=== PATIENT | female | born 1960 | race Caucasian/White ===

== ENCOUNTER 2022-03-14 06:45 | Emergency (ER) | payer BC ==
[~2022-03-14] VITALS: Ht 160 cm; Wt 48.2 kg
[2022-03-14 07:32] LABS: BASOPHILS % (AUTO) 0.8 % (0-1); EOSINOPHILS # (AUTO) 0.1 X10'3 (0-0.9); EOSINOPHILS % (AUTO) 1.1 % (0-6); HEMATOCRIT 37.3 % (35.0-45.0); HEMOGLOBIN 12.8 g/dl (12.0-16.0); LYMPHOCYTES % (AUTO) 49.1 % (21-51); MEAN CORPUSCULAR HEMOGLOBIN 32.8 PG (27.0-31.0); MEAN CORPUSCULAR HGB CONC 34.2 g/dL (33.0-36.5); MEAN CORPUSCULAR VOLUME 95.7 FL (78-98); MEAN PLATELET VOLUME 8.6 FL (7.4-10.4); MONOCYTES # (AUTO) 0.4 X10'3 (0-0.9); MONOCYTES % (AUTO) 6.7 % (2-12); NEUTROPHILS # (AUTO) 2.6 X10'3 (1.8-7.7); NEUTROPHILS % (AUTO) 42.3 % (42-75); PLATELET COUNT 169 X10'3 (140-440); RED BLOOD COUNT 3.89 X10'6 (4.20-5.60); RED CELL DISTRIBUTION WIDTH 12.8 % (11.5-14.5); WHITE BLOOD COUNT 6.1 X10'3 (4.5-11.0)
[2022-03-14 07:36] LABS: CLARITY,URINE CLEAR (Clear); COLOR,URINE YELLOW (Yellow); GLUCOSE, URINE NEGATIVE (Neg); KETONES,URINE NEGATIVE (Neg); LEUKOCYTE ESTERASE ,URINE NEGATIVE (Neg); NITRITES, URINE NEGATIVE (Neg); OCCULT BLOOD,URINE NEGATIVE (Neg); PROTEIN,URINE NEGATIVE (Neg); UROBILINOGEN,URINE 0.2 E.U/dL (0.2-1.0)
[2022-03-14 07:39] LABS: URINE HCG NEGATIVE (NEG)
[2022-03-14] MEDS ORDERED: normal saline 1000ML IV soln IVB ONE (07:40)
[2022-03-14] MEDS ORDERED: ondansetron/PF 4mg/2ml inj IV ONE (07:40)
[2022-03-14] MEDS ORDERED: pantoprazole 40 MG vial IV ONE (07:40)
[2022-03-14 07:44] LABS: UA COLLECTION TYPE CLN CATCH MIDSTREAM
[2022-03-14] MEDS ORDERED: pantoprazole 40MG/NS 100ML BAG 100 ML IV ONE (07:50)
[2022-03-14 07:51] LABS: ALANINE AMINOTRANSFERASE 19 U/L (12-78); ALBUMIN/GLOBULIN RATIO 1.3 (1.1-1.5); ALKALINE PHOSPHATASE 74 IU/L (46-116); ANION GAP 9 (8-16); ASPARTATE AMINO TRANSFERASE 24 U/L (10-37); BILIRUBIN,TOTAL 0.6 MG/DL (0.1-1.0); BLOOD UREA NITROGEN 13 MG/DL (7-18); BUN/CREATININE RATIO 14.3 (6.6-38.0); CALCIUM 8.7 MG/DL (8.5-10.1); CHLORIDE 109 MMOL/L (99-107); CREATININE 0.91 MG/DL (0.40-0.90); GLUCOSE 113 MG/DL (70-104); LIPASE 124 U/L (73-393); POTASSIUM 3.4 MMOL/L (3.5-5.1); SODIUM 144 MMOL/L (135-145); TOTAL CARBON DIOXIDE 25.6 MMOL/L (24-32); TOTAL PROTEIN 7.1 G/DL (6.4-8.2); eGFR 63 ML/MIN
[2022-03-14] MEDS: morphine 2 MG/ML inj. syringe IV PRN ×2 (07:52→08:18)
--- NOTE | 2022-03-14 09:19 | NUR ---
pt back in the room from ct.
[2022-03-14] MEDS ORDERED: ACET-3068 PO (11:08)
[2022-03-14] MEDS ORDERED: FLO0.4C PO (11:08)
[2022-03-14] MEDS ORDERED: tamsulosin 0.4mg capsule PO SCH (11:16)
[2022-03-14 11:27] VITALS: BP 119/67
== END 2022-03-14 11:30 | disposition home or self-care (01) ==
LOC: ER 06:47
DX: N23 Unspecified renal colic (principal); I10 Essential (primary) hypertension; K21.9 Gastro-esophageal reflux disease without esophagitis; Z88.8 Allergy status to other drugs, medicaments and biological substances; Z79.899 Other long term (current) drug therapy
CPT/HCPCS: 36415; 74177; 80053; 81003; 81025; 83690; 85025; 96365; 96375; 99285; C9113; J2270; J2405; J3490; J7030